=== PATIENT | female | born 1980 | race Caucasian/White ===

== ENCOUNTER 2017-01-03 14:19 | Emergency (ER) | payer MEDICARE, MEDICAID ==
[~2017-01-03] VITALS: Ht 162.6 cm; Wt 68.0 kg
[~2017-01-03 14:19] MED LIST: LORA2TAB2 PO; OXYC-100 PO; PARO20TA53 PO; ZOLP12.52 PO
[2017-01-03] MEDS ORDERED: LORAZEPAM 1MG TABLET PO ONE (15:30)
[2017-01-03 16:57] VITALS: BP 106/69
== END 2017-01-03 16:58 | disposition home or self-care (01) ==
LOC: ER 15:58
DX: F41.0 Panic disorder [episodic paroxysmal anxiety] (principal); R07.89 Other chest pain; Z88.8 Allergy status to other drugs, medicaments and biological substances; Z59.0 Homelessness
CPT/HCPCS: 93005; 99284

== ENCOUNTER 2017-01-16 13:39 | Emergency (ER) | payer MEDICARE, MEDICAID, OTHER ==
[~2017-01-16] VITALS: Ht 162.6 cm; Wt 68.0 kg
[~2017-01-16 13:39] MED LIST changes: +PARO-66 PO; -PARO20TA53 PO
[2017-01-16 16:02] VITALS: BP 112/56
== END 2017-01-16 17:07 | disposition home or self-care (01) ==
LOC: ER 16:04
DX: F41.0 Panic disorder [episodic paroxysmal anxiety] (principal); R07.89 Other chest pain; Z76.5 Malingerer [conscious simulation]
CPT/HCPCS: 99284

== ENCOUNTER 2017-02-21 14:52 | Emergency (ER) | payer MEDICARE, MEDICAID ==
[~2017-02-21] VITALS: Ht 160 cm; Wt 60.0 kg
[2017-02-21] MEDS: SODIUM CHLORIDE 0.9% 1,000 ML IV ONE (01:45)
[2017-02-21] MEDS: ONDANSETRON HCL 4MG/2ML VIAL IV ONE (01:45)
[2017-02-21 22:54] LABS: CLARITY URINE CLOUDY (CLEAR); COLOR URINE YELLOW (YELLOW); GLUCOSE URINE NEGATIVE (NEGATIVE); KETONES URINE NEGATIVE (NEGATIVE); LEUKOCYTE ESTERASE URINE TRACE (NEGATIVE); NITRITE URINE NEGATIVE (NEGATIVE); OCCULT BLOOD URINE 3+ (NEGATIVE); PROTEIN URINE 2+ (NEGATIVE); SPECIFIC GRAVITY URINE 1.026 (1.005-1.030)
[2017-02-21 23:07] LABS: *AMPHETAMINES SCREEN URINE NEGATIVE (NEGATIVE); *BARBITURATES SCREEN URINE NEGATIVE (NEGATIVE); *COCAINE SCREEN URINE NEGATIVE (NEGATIVE); CANNABINOID URINE SCREEN NEGATIVE (NEGATIVE); METHADONE URINE SCREEN NEGATIVE (NEGATIVE); OPIATES URINE SCREEN NEGATIVE (NEGATIVE); PHENCYCLIDINE URINE SCREEN NEGATIVE (NEGATIVE)
[2017-02-21 23:08] LABS: *BENZODIAZEPINES SCREEN URINE PRESUMTIVE POSITIVE (NEGATIVE)
[2017-02-22 01:57] LABS: BASOPHILS % 0.6 % (0.0-2.0); EOSINOPHILS % 0.5 % (0.0-5.0); HEMATOCRIT. 30.8 % (36.0-48.0); HEMOGLOBIN. 9.5 g/dL (12.0-16.0); LYMPHOCYTES % 16.6 % (20.0-50.0); MEAN CORPUSCULAR HEMOGLOBIN 20.9 pg (28.0-32.0); MEAN CORPUSCULAR VOLUME 68.2 fL (81.0-99.0); MEAN PLATELET VOLUME 9.9 fl (7.4-10.4); MONOCYTES % 6.9 % (2.0-8.0); NEUTROPHILS % 75.4 % (40.0-76.0); PLATELET 273 x1000/uL (130-400); RED BLOOD CELL COUNT 4.52 mill/uL (4.2-5.4); RED CELL DISTRIBUTION WIDTH 17.6 % (11.6-14.6)
[2017-02-22 02:07] LABS: CHLORIDE 109 mEq/L (98-107)
[2017-02-22 02:15] LABS: CARBON DIOXIDE 25 mEq/L (21-32); ETHANOL BLOOD < 10 mg/dL
[2017-02-22 03:00] LABS: PLATELET ESTIMATE NORMAL
[2017-02-22] MEDS: LORAZEPAM 0.5MG TABLET PO ONE (06:33)
[2017-02-22] MEDS: SODIUM CHLORIDE 0.9% 1,000 ML IV ONE (08:26)
[2017-02-22 12:50] VITALS: BP 110/78
== END 2017-02-22 13:03 | disposition home or self-care (01) ==
LOC: ER 15:34
DX: N39.0 Urinary tract infection, site not specified (principal); D64.9 Anemia, unspecified; F41.9 Anxiety disorder, unspecified
CPT/HCPCS: 36415; 80053; 80305; 80307; 80329; 81001; 81025; 85025; 96361; 96374; 99285; C1893; G0482; J2405; J7030

== ENCOUNTER 2019-11-21 18:32 | Emergency (ER) | payer MEDICAID, MEDICARE, OTHER ==
[~2019-11-21] VITALS: Ht 170.2 cm; Wt 59.0 kg
[2019-11-21 18:34] VITALS: BP 101/56
[2019-11-21] MEDS ORDERED: HYDROXYZINE 25MG TABLET PO ONE (21:15)
== END 2019-11-21 22:04 | disposition home or self-care (01) ==
LOC: ER 18:41
DX: F41.9 Anxiety disorder, unspecified (principal); R10.9 Unspecified abdominal pain
CPT/HCPCS: 81025; 93005; 99283